=== PATIENT | female | born 1985 | race Hispanic/Latino ===

== ENCOUNTER 2017-03-16 15:14 | Inpatient (IN) | payer MEDICAID, OTHER ==
[2017-03-16] MEDS ORDERED: LR / Pitocin 40 units/1000 ml 1,000 ML ONE (15:44)
[2017-03-16] MEDS ORDERED: Penicillin G Potassium 5 MILL.UNITS VIAL ONE (15:49)
[2017-03-16] MEDS ORDERED: Sodium Chloride 0.9% 100 ML ONE (15:49)
[2017-03-16] MEDS ORDERED: Ibuprofen 800 MG TAB PO PRN (16:06)
[2017-03-16] MEDS ORDERED: Lidocaine 1% (PF) 30 ML VIAL SC PRN (16:06)
[2017-03-16] MEDS ORDERED: Ondansetron HCl/PF 4 MG/2 ML Vial IVP PRN (16:06)
[2017-03-16] MEDS ORDERED: LR / Pitocin 40 units/1000 ml 1,000 ML IV PRN (16:06)
[2017-03-16] MEDS ORDERED: HYDROcodone/Acetaminophen 5/325 mg Tablet PO PRN ×4 (16:06→18:53)
[2017-03-16] MEDS ORDERED: Lactated Ringer's 1,000 ML IV PRN (16:06)
[2017-03-16] MEDS ORDERED: Promethazine HCl 25 MG/ML VIAL IM PRN (16:06)
[2017-03-16] MEDS ORDERED: Penicillin G Potassium 5 MILL.UNITS in Sodium Chloride 0.9% 100 ML IVPB SCH (16:15)
[2017-03-16 16:17] LABS: Hematocrit 41.7 % (36.0-47.0)
--- NOTE | 2017-03-16 16:41 | PDOC.LDHP ---
Labor and Delivery H&P Chief complaint: contractions HPI: contractions since 1400, denies LOF, VB Current gestational age (weeks): 39 Due date: 03/19/17 Dating criteria: last menstrual period (verified with first trimester US) Grav: 3 Para: 2 OB History Details: Transfer of care at 27 weeks gestation Current complications: none Abnormal US findings: No Past Medical History: negative. Current medications: pre-stan vitamins Previous surgical history: none Social history: none - Physical Exam Vital signs reviewed and normal: yes General: breathing through contractions Heart: RRR Lungs: nonlabored breathing Abdomen: gravid Extremeties: trace edema FHT: category 1 - Vaginal Exam cm dilated: 10 Effacement: 100% - OB Labs Blood type: O RH: positive HIV: negative RPR: negative HEPSAg: negative 1 hour GCT: negative GBS: positive Urine drug screen: not done Additional Labs: rubella immune - Assessment L&D Assessment: term patient in labor - Plan Plan: admit to L&D, GBS antibiotic prophylaxis -: anticipate .
--- NOTE | 2017-03-16 16:47 | PDOC.OPDEL ---
OB Operative/Delivery Note Delivery Dr/Surgeon: Light Pre-Delivery Diagnosis: active labor Procedure/Post Delivery Dx: spontaneous vaginal delivery Weeks gestation: 39 Anesthesia: none - Findings A Sex: male Weight: 7 lb 5 oz - 5 min: 9 - 10 min: 9 - Additional Findings/Plan Placenta delivered: spontaneous Repaired Obstetrical Laceration: none Estimated blood loss: 200ml Compilations/Other Findings: precipitous labor GBS untreated No vaginal / perineal lacerations SROM with light meconium at delivery - of fetus prior to denise team arriving. No complications requiring denise team assessment or resuscitation. Post delivery plan: routine recovery
[2017-03-16] MEDS ORDERED: Milk Of Magnesia 30 ML UDCUP PO PRN (18:53)
[2017-03-16] MEDS ORDERED: LR / Pitocin 40 units/1000 ml 1,000 ML IV SCH (18:53)
[2017-03-16] MEDS ORDERED: Benzocaine/Menthol 20-0.5% 60 ML CAN TOP PRN (18:53)
[2017-03-16] MEDS ORDERED: Bisacodyl 10 MG SUPP PR PRN (18:53)
[2017-03-16] MEDS ORDERED: Misoprostol 200 MCG TAB VAG SCH (19:15)
[2017-03-16] MEDS ORDERED: Ferrous Sulfate 325 MG TAB PO SCH (19:15)
[2017-03-16] MEDS ORDERED: Adacel (T-DAP) 0.5 ML VIAL IM ONE (20:00)
[2017-03-16] MEDS ORDERED: Pen G 2.5 MILL.UNITS/50 ML BAG IVPB SCH (20:00)
[2017-03-16] MEDS ORDERED: Varicella virus, LIVE 0.5 ML VIAL SC ONE (20:00)
[2017-03-16] MEDS: Docusate (Surfak) 240 MG CAP PO SCH (22:03)
[2017-03-16] MEDS: Ibuprofen 800 MG TAB PO SCH (22:04)
[2017-03-17 04:53] LABS: Hematocrit 36.2 % (36.0-47.0); Red Blood Cell (RBC) Count 3.86 mill/uL (4.20-5.40); White Blood Cell (WBC) Count 8.8 thou/uL (4.8-10.8)
[2017-03-17] MEDS: Ibuprofen 800 MG TAB PO SCH ×3 (06:16→23:28)
[2017-03-17] MEDS: Ferrous Sulfate 325 MG TAB PO SCH ×2 (09:10→16:18)
[2017-03-17] MEDS: Docusate (Surfak) 240 MG CAP PO SCH ×2 (09:10→21:56)
--- NOTE | 2017-03-17 10:09 | PDOC.PP ---
Post Progress Note Post Day #: 1 -: doing well. only a little pain in her vagina. bleeding is okay PO intake tolerated: yes Ambulation: yes Vital Signs (12 hours) Temp Pulse Resp BP Pulse Ox 03/17/17 07:10 98.3 F 76 18 99/54 L 99 03/17/17 04:30 98.7 F 74 20 112/64 03/17/17 00:15 98.5 F 80 20 102/61 Weight Weight 154 lb - Physical Examination General: NAD Cardiovascular: no m/r/g, RRR Respiratory: clear to ausculation bilateral Abdominal: + bowel sounds, lochia (minimal) Fundus firm & at: U Extremities: negative homans (B) Skin: no rash Neurological: no gross focal deficits Psychiatric: A&Ox3 Result Diagrams: 03/17/17 04:34 Additional Labs: Post Labs Blood Type O POSITIVE 03/16/17 15:55 Hep Bs Antigen Non-Reactive S/CO (NonReactive) 03/16/17 15:55 (1) (spontaneous vaginal delivery) Code(s): O80 - ENCOUNTER FOR FULL-TERM UNCOMPLICATED DELIVERY Status: Acute (2) Precipitate labor, delivered, current hospitalization Code(s): O62.3 - PRECIPITATE LABOR Status: Acute - Assessment/Plan A: PPD # 1 s/p following precipitous labor. no lacerations. GBS positive - untreated. P: Discharge home tomorrow - pt was GBS untreated. Extra surveillance needed
[2017-03-18] MEDS: Ferrous Sulfate 325 MG TAB PO SCH (07:56)
[2017-03-18] MEDS: Ibuprofen 800 MG TAB PO SCH (07:59)
[2017-03-18] MEDS: Docusate (Surfak) 240 MG CAP PO SCH (07:59)
[2017-03-18 09:11] VITALS: BP 121/74; TEMP 98.2
--- NOTE | 2017-03-18 20:34 | DIS ---
DATE OF ADMISSION: 03/16/2017 DATE OF DISCHARGE: 03/18/2017 ADMITTING DIAGNOSIS: Labor at term. DISCHARGE DIAGNOSIS: Labor at term. PROCEDURE: Term spontaneous vaginal delivery. CONSULTATIONS: None. HOSPITAL COURSE: The patient is a 31-year-old G3, now P3 female, who was admitted to the hospital o n 03/16/2017 in active labor and subsequently had an uncomplicated term spontaneous vaginal delivery . For complete details, please refer to the delivery note. Patient's postdelivery hemoglobin was 1 2.3, hematocrit 36.2, platelets of 285,000. Her course has been uncomplicated. Today, s he is day #2, she reports that she is tolerating p.o. well, voiding on her own, having de creased lochia and good pain control. PHYSICAL EXAMINATION: VITAL SIGNS: Today, blood pressure 121/74, temperature 98.2, pulse of 82, respiratory rate of 20. GENERAL: She appears to be in no acute distress. She is alert and oriented, cooperative and pleasa nt to interact with. HEENT: Head is normocephalic, atraumatic. ABDOMEN: Soft. Fundus is firm at the umbilicus -2 to 3. EXTREMITIES: The lower extremities are nontender to palpation and nonedematous. The patient is being discharged to home. She has instructions to follow up with Ms. Iwona Jha in 6 weeks. She has also been given instructions to seek medical attention sooner if she experience s fever, increasing pain or bleeding. The patient is being discharged to home on ibuprofen 800 mg t o be taken 3 times a day as needed for pain, #30.
== END 2017-03-18 12:30 | disposition home or self-care (01) | DRG 775 ==
LOC: L&D/OP 15:14 → L&D 15:41 → 3SW 18:49
PROVIDERS: ADMIT Student in an Organized Health Care Education/Training Program; ATTEND Student in an Organized Health Care Education/Training Program
PROC: 10E0XZZ Delivery of Products of Conception, External Approach (ICD-10-PCS; principal; 2017-03-16)
DX: O62.3 Precipitate labor (principal); O99.824 Streptococcus B carrier state complicating childbirth; Z37.0 Single live birth; Z3A.39 39 weeks gestation of pregnancy; Z67.40 Type O blood, Rh positive
CPT/HCPCS: 36415; 85027; 86780; 87340; J2540; J7050